=== PATIENT | male | born 1975 | race Caucasian/White ===

== ENCOUNTER 2017-06-21 20:42 | Emergency (ER) | payer OTHER ==
[~2017-06-21] VITALS: Ht 180.3 cm; Wt 114.4 kg
[~2017-06-21 20:42] MED LIST: 12 HOUR DECONG120 M1 PO; ADVIL200 MG PO; ALBUTEROL SULF8.5 GM IH; AMBIEN10 M1 GT; AMBIEN10 MG PO; ATARAX,VISTARIL50 MG PO; BENADRYL25 MG PO; CELEXA10 M1 GT; CIPRO500 MG PO; CLARITIN10 M3 PO; COMBIVENT200 INHALA IH; EFFEXOR XR75 MG PO; FLAGYL500 MG PO; FLONASE16 G1 BOTH NARES; IBUPROFEN400 MG PO; LISINOPRIL5 MG PO; NAPROSYN500 MG PO; NORCO 5/3251 TABLET PO; PROAIR HFA8.5 GM IH; Percocet 5/325,Endoc PO; SYMBICORT60 INHALAT IH; ZESTRIL,PRINIV2.5 MG PO; ZOFRAN4 MG PO
[2017-06-21 21:46] LABS: ADD MIUA? YES; BILIRUBIN NEGATIVE; BLOOD LARGE; COLOR YELLOW ((YELLOW)); GLUCOSE (STRIP) NEGATIVE; KETONES NEGATIVE; LEUKOCYTES NEGATIVE; NITRITE NEGATIVE; PROTEIN (STRIP) 100; SPECIFIC GRAVITY 1.027 (1.000-1.030); UROBILINOGEN 0.2 MG/DL (0.2-1.0)
[2017-06-21 22:00] LABS: HEMATOCRIT 43.6 % (38.0-50.0); MCH 29.9 PG (29.0-34.0); MCHC 34.4 G/DL (30.0-36.0); MCV 86.9 FL (86-99); MEAN PLAT.VOLUME 10.8 uM^3 (9.0-12.4); PLATELET COUNT 167 K/uL (156-360); RBC DIS.WIDTH-CV 13.1 % (11.8-14.6); RED BLOOD COUNT 5.02 M/uL (4.00-5.50); WHITE BLOOD COUNT 7.5 K/uL (4.1-10.2)
[2017-06-21 22:04] LABS: HYALINE CASTS 0-5 /LPF; MUCUS NONE SEEN /LPF; RED BLOOD CELLS TNTC /HPF (0-5); UCUL ADDED? YES
[2017-06-21 22:19] LABS: CHLORIDE 103 mEq/L (99-109); POTASSIUM 3.4 mEq/L (3.7-5.4); SODIUM 140 mEq/L (136-147)
[2017-06-21 22:21] LABS: GLUCOSE 128 mg/dL (70-99)
[2017-06-21 22:22] LABS: ANION GAP 10 MEQ/L (2-14)
[2017-06-21 22:23] LABS: TOTAL BILIRUBIN 0.9 mg/dL (0.0-1.0)
[2017-06-21 22:25] LABS: ALKALINE PHOSPHATASE 62 IU/L (3-129); GFR ESTIMATE (CALCULATED) > 59 mL/min/ (58.99-99999)
[2017-06-21 22:26] LABS: UREA NITROGEN (BUN) 22 mg/dL (9-23)
[2017-06-21 22:33] LABS: EPITHELIAL CELLS NONE SEEN /HPF; WHITE BLOOD CELLS 0-5 /HPF (0-5)
[2017-06-21 22:34] LABS: BACTERIA RARE /HPF
[2017-06-21 22:37] LABS: CASTS NONE SEEN /LPF; CRYSTALS NONE SEEN
[2017-06-21 23:26] VITALS: BP 146/87
== END 2017-06-21 23:30 | disposition home or self-care (01) ==
LOC: EXP 20:42 → EME 20:42 → EXP 23:30
DX: N20.0 Calculus of kidney (principal); R10.32 Left lower quadrant pain; R31.9 Hematuria, unspecified; Z87.442 Personal history of urinary calculi; I10 Essential (primary) hypertension; J45.909 Unspecified asthma, uncomplicated; F41.9 Anxiety disorder, unspecified; F32.9 Major depressive disorder, single episode, unspecified; Z88.2 Allergy status to sulfonamides; Z87.891 Personal history of nicotine dependence
CPT/HCPCS: 74176; 80053; 81003; 85027; 87086; 99281; 99284

== ENCOUNTER 2017-06-25 11:31 | Emergency (ER) | payer OTHER ==
[~2017-06-25] VITALS: Ht 180.3 cm; Wt 115.0 kg
[2017-06-25 12:05] LABS: APPEARANCE CLOUDY ((CLEAR)); BILIRUBIN NEGATIVE; BLOOD LARGE; COLOR AMBER ((YELLOW)); GLUCOSE (STRIP) NEGATIVE; KETONES NEGATIVE; LEUKOCYTES NEGATIVE; NITRITE NEGATIVE; PROTEIN (STRIP) 100; SPECIFIC GRAVITY 1.025 (1.000-1.030); UROBILINOGEN 0.2 MG/DL (0.2-1.0)
[2017-06-25 12:44] LABS: HEMATOCRIT 43.9 % (38.0-50.0); MCH 29.5 PG (29.0-34.0); MCHC 34.2 G/DL (30.0-36.0); MCV 86.4 FL (86-99); PLATELET COUNT 152 K/uL (156-360); RBC DIS.WIDTH-SD 40.7 % (39-53); RED BLOOD COUNT 5.08 M/uL (4.00-5.50)
[2017-06-25 12:45] LABS: RED BLOOD CELLS TNTC /HPF (0-5); WHITE BLOOD CELLS 0-5 /HPF (0-5)
[2017-06-25 12:46] LABS: BACTERIA RARE /HPF; EPITHELIAL CELLS RARE /HPF; MUCUS NONE SEEN /LPF; UCUL ADDED? YES
[2017-06-25 12:54] LABS: CHLORIDE 103 mEq/L (99-109); POTASSIUM 3.8 mEq/L (3.7-5.4); SODIUM 139 mEq/L (136-147)
[2017-06-25 12:56] LABS: GLUCOSE 146 mg/dL (70-99)
[2017-06-25 13:00] LABS: CREATININE 1.4 mg/dL (0.6-1.3); GFR ESTIMATE (CALCULATED) > 59 mL/min/ (58.99-99999)
[2017-06-25 13:01] LABS: UREA NITROGEN (BUN) 21 mg/dL (9-23)
[2017-06-25 13:02] LABS: CREATINE KINASE 90 IU/L (1-294); TOTAL CK 90 IU/L (1-294)
[2017-06-25 13:11] LABS: CK-MB 1.4 ng/mL (0.0-4.9); CKMB RELATIVE INDEX 1.6 (0.0-3.9)
[2017-06-25 14:03] VITALS: BP 142/96
[2017-07-04] MEDS ORDERED: VENTOLIN HFA18 GM IH (16:20)
[2017-07-04] MEDS ORDERED: PERCOCET 5/31 TABLET PO (16:21)
[2017-07-04] MEDS ORDERED: NORCO 5/3251 TABLET PO (16:21)
[2017-07-04] MEDS ORDERED: FLOMAX0.4 MG PO (16:22)
[2017-07-04] MEDS ORDERED: HYZAAR 100-21 TABLET PO (16:22)
[2017-07-04] MEDS ORDERED: ZOFRAN8 MG PO (16:23)
[2017-07-04] MEDS ORDERED: BUSPAR7.5 MG PO (16:24)
[2017-07-04] MEDS ORDERED: ATIVAN0.5 MG PO (16:24)
== END 2017-06-25 14:03 | disposition home or self-care (01) ==
LOC: EME 11:31
DX: R31.9 Hematuria, unspecified (principal); R10.30 Lower abdominal pain, unspecified; Z87.442 Personal history of urinary calculi; I10 Essential (primary) hypertension; J45.909 Unspecified asthma, uncomplicated; F41.9 Anxiety disorder, unspecified; F32.9 Major depressive disorder, single episode, unspecified; Z87.891 Personal history of nicotine dependence; Z88.2 Allergy status to sulfonamides
CPT/HCPCS: 74000; 80048; 81003; 82550; 82553; 85027; 87086; 99281; 99283

== ENCOUNTER 2017-07-02 12:00 | Emergency (ER) | payer OTHER ==
[~2017-07-02] VITALS: Ht 180.3 cm; Wt 125.0 kg
[2017-07-02 15:51] LABS: APPEARANCE CLOUDY ((CLEAR)); BILIRUBIN NEGATIVE; BLOOD LARGE; COLOR YELLOW ((YELLOW)); GLUCOSE (STRIP) NEGATIVE; KETONES NEGATIVE; LEUKOCYTES NEGATIVE; NITRITE NEGATIVE; PROTEIN (STRIP) 30; SPECIFIC GRAVITY 1.018 (1.000-1.030); UROBILINOGEN 0.2 MG/DL (0.2-1.0)
[2017-07-02 16:01] LABS: BACTERIA NONE SEEN /HPF; EPITHELIAL CELLS RARE /HPF; HYALINE CASTS 0-5 /LPF; MUCUS TRACE /LPF; RED BLOOD CELLS TNTC /HPF (0-5); WHITE BLOOD CELLS 0-5 /HPF (0-5)
[2017-07-02] MEDS ORDERED: ZOFRAN ODT8 MG PO (16:10)
[2017-07-02] MEDS ORDERED: PERCOCET 5/31 TABLET PO (16:10)
[2017-07-02 16:33] VITALS: BP 128/76
[2017-07-03] MEDS ORDERED: NORCO 5/3251 TABLET PO (16:14)
[2017-07-04] MEDS ORDERED: VENTOLIN HFA18 GM IH (16:20)
[2017-07-04] MEDS ORDERED: PERCOCET 5/31 TABLET PO (16:21)
[2017-07-04] MEDS ORDERED: NORCO 5/3251 TABLET PO (16:21)
[2017-07-04] MEDS ORDERED: FLOMAX0.4 MG PO (16:22)
[2017-07-04] MEDS ORDERED: HYZAAR 100-21 TABLET PO (16:22)
[2017-07-04] MEDS ORDERED: ZOFRAN8 MG PO (16:23)
[2017-07-04] MEDS ORDERED: ATIVAN0.5 MG PO (16:24)
[2017-07-04] MEDS ORDERED: BUSPAR7.5 MG PO (16:24)
== END 2017-07-02 16:40 | disposition home or self-care (01) ==
LOC: EME 12:00
PROVIDERS: Physician Assistant
DX: N20.2 Calculus of kidney with calculus of ureter (principal); Z87.442 Personal history of urinary calculi; Z98.890 Other specified postprocedural states; J45.909 Unspecified asthma, uncomplicated; I10 Essential (primary) hypertension; F32.9 Major depressive disorder, single episode, unspecified; F41.9 Anxiety disorder, unspecified; Z88.2 Allergy status to sulfonamides; Z87.891 Personal history of nicotine dependence
CPT/HCPCS: 74000; 76770; 81003; 99281; 99285; J1885; J2270; J2405; J7030

== ENCOUNTER 2017-07-03 11:43 | Emergency (ER) | payer OTHER ==
[~2017-07-03] VITALS: Ht 177.8 cm; Wt 116.4 kg
[~2017-07-03 11:43] MED LIST changes: +PERCOCET 5/31 TABLET PO; +ZOFRAN ODT8 MG PO
[2017-07-03 13:40] LABS: HEMATOCRIT 39.1 % (38.0-50.0); HEMOGLOBIN 13.6 G/DL (12.5-16.6); MCH 30.3 PG (29.0-34.0); MCHC 34.8 G/DL (30.0-36.0); MCV 87.1 FL (86-99); PLATELET COUNT 155 K/uL (156-360); RBC DIS.WIDTH-CV 13.2 % (11.8-14.6); RBC DIS.WIDTH-SD 41.7 % (39-53); RED BLOOD COUNT 4.49 M/uL (4.00-5.50); WHITE BLOOD COUNT 12.1 K/uL (4.1-10.2)
[2017-07-03 13:48] LABS: CHLORIDE 106 mEq/L (99-109); POTASSIUM 3.9 mEq/L (3.7-5.4); SODIUM 138 mEq/L (136-147)
[2017-07-03 13:49] LABS: GLUCOSE 107 mg/dL (70-99)
[2017-07-03 13:53] LABS: CREATININE 1.7 mg/dL (0.6-1.3); GFR ESTIMATE (CALCULATED) 47 mL/min/ (58.99-99999)
[2017-07-03 13:54] LABS: UREA NITROGEN (BUN) 25 mg/dL (9-23)
[2017-07-03 13:58] LABS: APPEARANCE CLEAR ((CLEAR)); BILIRUBIN NEGATIVE; BLOOD LARGE; COLOR YELLOW ((YELLOW)); GLUCOSE (STRIP) NEGATIVE; KETONES NEGATIVE; LEUKOCYTES NEGATIVE; NITRITE NEGATIVE; PROTEIN (STRIP) NEGATIVE; SPECIFIC GRAVITY 1.027 (1.000-1.030); UROBILINOGEN 0.2 MG/DL (0.2-1.0)
[2017-07-03 14:06] LABS: BACTERIA NONE SEEN /HPF; CALCIUM OXALATE CRYSTALS 1+ /HPF; EPITHELIAL CELLS RARE /HPF; MUCUS NONE SEEN /LPF; RED BLOOD CELLS TNTC /HPF (0-5); WHITE BLOOD CELLS 0-5 /HPF (0-5)
[2017-07-03] MEDS ORDERED: NORCO 5/3251 TABLET PO (16:14)
[2017-07-03 16:28] VITALS: BP 137/86
[2017-07-04] MEDS ORDERED: VENTOLIN HFA18 GM IH (16:20)
[2017-07-04] MEDS ORDERED: PERCOCET 5/31 TABLET PO (16:21)
[2017-07-04] MEDS ORDERED: NORCO 5/3251 TABLET PO (16:21)
[2017-07-04] MEDS ORDERED: FLOMAX0.4 MG PO (16:22)
[2017-07-04] MEDS ORDERED: HYZAAR 100-21 TABLET PO (16:22)
[2017-07-04] MEDS ORDERED: ZOFRAN8 MG PO (16:23)
[2017-07-04] MEDS ORDERED: ATIVAN0.5 MG PO (16:24)
[2017-07-04] MEDS ORDERED: BUSPAR7.5 MG PO (16:24)
== END 2017-07-03 16:30 | disposition home or self-care (01) ==
LOC: EME 11:43
PROVIDERS: Nurse Practitioner Family
DX: N20.0 Calculus of kidney (principal); J45.909 Unspecified asthma, uncomplicated; I10 Essential (primary) hypertension; F41.9 Anxiety disorder, unspecified; F32.9 Major depressive disorder, single episode, unspecified; Z87.891 Personal history of nicotine dependence; Z87.442 Personal history of urinary calculi; Z88.2 Allergy status to sulfonamides
CPT/HCPCS: 80048; 81003; 85027; 99281; 99284; J2270

== ENCOUNTER 2017-07-05 05:36 | Day surgery (SDC) | payer OTHER ==
[~2017-07-05] VITALS: Ht 177.8 cm; Wt 112.5 kg
[~2017-07-05 05:36] MED LIST changes: +ATIVAN0.5 MG PO; +BUSPAR7.5 MG PO; +FLOMAX0.4 MG PO; +HYZAAR 100-21 TABLET PO; +VENTOLIN HFA18 GM IH; +ZOFRAN8 MG PO
[2017-07-05 07:06] VITALS: BP 123/72
[2017-07-05 10:45] VITALS: BP 131/68
[2017-07-05 11:55] VITALS: BP 137/75
[2017-07-05 12:15] VITALS: BP 129/56
== END 2017-07-05 12:50 | disposition home or self-care (01) ==
LOC: SDC 05:36
PROC: 0T768DZ Dilation of Right Ureter with Intraluminal Device, Via Natural or Artificial Opening Endoscopic (ICD-10-PCS; principal; 2017-07-05)
PROC: 0TF68ZZ Fragmentation in Right Ureter, Via Natural or Artificial Opening Endoscopic (ICD-10-PCS; principal; 2017-07-05)
DX: N20.2 Calculus of kidney with calculus of ureter (principal); I10 Essential (primary) hypertension; F41.9 Anxiety disorder, unspecified; J45.909 Unspecified asthma, uncomplicated; Z87.891 Personal history of nicotine dependence; Z88.2 Allergy status to sulfonamides
CPT/HCPCS: 74420; 93005; C2625; J0690; J1170; J1885; J2175; J2250; J2405; J3010